=== PATIENT | male | born 1975 | race Caucasian/White ===

== ENCOUNTER → 2017-03-29 09:36 | Day surgery (SDC) | payer OTHER ==
--- NOTE | 2017-03-01 14:30 | HP ---
PREOPERATIVE HISTORY AND PHYSICAL: DATE OF ADMISSION/SURGERY: 03/29/17 DATE OF OFFICE VISIT: 02/16/17 ATTENDING SURGEON: Dr. Adelia Adamson * (DICTATED BY FATUMA DREW) PROCEDURE: Left shoulder arthroscopic decompression and debridement, subpectoral biceps tenodesis. CHIEF COMPLAINT: Left shoulder pain. HISTORY OF PRESENT ILLNESS: Hakan is a 41-year-old male who presents to the clinic for followup of his work-related injury that caused left shoulder impingement of biceps tendinitis. The patient has failed conservative measures to include 2 injections, which help decrease the pain; however, then wore off, he continued to have pain and numbness in his hands. He is therefore agreed to undergo a left shoulder arthroscopic decompression and debridement, subpectoral biceps tenodesis with Dr. Adamson on 03/29/17. PAST MEDICAL HISTORY: No current problems. PAST SURGICAL HISTORY: No prior surgeries. MEDICATIONS: Ibuprofen 600 mg 1 by mouth 3 times a day as needed for pain. ALLERGIES: No known drug allergies. FAMILY HISTORY: Denies pertinent family history. SOCIAL HISTORY: He denies tobacco use. He reports rare alcohol consumption. He denies illegal drug use. REVIEW OF SYSTEMS: A 14-point review of systems was reviewed with the patient and positive for current complaint, otherwise negative. PHYSICAL EXAMINATION GENERAL: A 41-year-old well-developed, well-nourished male, in no acute distress. Alert and oriented x3. Appropriate mood and affect. VITAL SIGNS: Height 67, weight 180, pulse 73, blood pressure 130/106, BMI 28.2. HEENT: Normocephalic, atraumatic. PERRLA. Throat clear. NECK: Supple. PULMONARY: Lungs are clear to auscultation bilaterally. No wheezing, rhonchi, or rales. CARDIO: Regular rate and rhythm. S1, S2. No murmurs, gallops, or rubs. No edema. ABDOMEN: Positive bowel sounds, soft, and nontender. NEURO: Alert and oriented x3. Cranial nerves grossly intact. Sensation is intact to light touch. MUSCULOSKELETAL: Left upper extremity: Skin is intact. No warmth or erythema. Tender over the biceps proximally approximately, forward flexion and abduction is 165. External rotation to 80. Internal rotation to T8. Positive Gen's impingement, Rm, Hooker's, and Speed. +2 radial pulse. Sensation is intact to light touch distally. DIAGNOSTIC STUDIES: MRI of the left shoulder revealed mild supraspinatus and infraspinatus tendinopathy. No evidence of rotator cuff tear with subacromial impingement. IMPRESSION: Left shoulder impingement and biceps tendinitis. PLAN: The patient is scheduled to undergo a left shoulder arthroscopic decompression and debridement, subpectoral biceps tenodesis with Dr. Adamson on 03/29/17. Percocet will be used for postoperative pain management. The patient will follow up in 10 to 14 days after surgery for followup and suture removal. FATUMA DREW [id number]/[facility] #: [id number] MTDD
--- NOTE | 2017-03-14 22:11 | HP ---
PREOPERATIVE HISTORY AND PHYSICAL: DATE OF ADMISSION/SURGERY: 03/29/17. DATE OF OFFICE VISIT: 03/14/17 ATTENDING SURGEON: Adelia Adamson MD * (DICTATED BY FATUMA DREW) PROCEDURE: Left shoulder arthroscopic decompression and debridement, subpectoral biceps tenodesis. CHIEF COMPLAINT: Left shoulder pain. HISTORY OF PRESENT ILLNESS: Hakan is a 42-year-old male who presents to the clinic for his work-related injury that caused left shoulder impingement and biceps tendinitis. He has failed conservative measures to include injections, which helped to decrease the pain; however, then they wore off. He continues to have pain and numbness in the hand; therefore, he is agreed to undergo left shoulder arthroscopic decompression and debridement, subpectoral biceps tenodesis with Dr. Adamson on 03/29/17. PAST MEDICAL HISTORY: No current problems. PAST SURGICAL HISTORY: No prior surgeries. MEDICATIONS: Ibuprofen 600 mg 1 by mouth 3 times a day as needed. ALLERGIES: No known drug allergies. FAMILY HISTORY: Denies pertinent family history. SOCIAL HISTORY: He denies tobacco use. He reports rare alcohol consumption. He denies illegal drug use. REVIEW OF SYSTEMS: A 14-point review of systems was reviewed with the patient and positive for current complaint, otherwise negative. Denies chest pain or shortness of breath. Denies fevers or chills. Denies history of DVT or PE. Denies history of bleeding disorder. PHYSICAL EXAMINATION GENERAL: A 42-year-old well-developed, well-nourished male, in no acute distress, alert and oriented x3. Appropriate mood and affect. VITAL SIGNS: Height 67, weight 180, blood pressure 124/78, respiratory rate 18 , temperature 97.5, BMI 28.2. HEENT: Normocephalic, atraumatic. PERRLA. Throat clear. NECK: Supple. PULMONARY: Lungs are clear to auscultation bilaterally. No wheezing, rhonchi, or rales. CARDIO: Regular rate and rhythm. S1, S2. No murmurs, gallops, or rubs. No edema. ABDOMEN: Positive bowel sounds. Soft and nontender. NEURO: Alert and oriented x3. Cranial nerves grossly intact. Sensation is intact to light touch. MUSCULOSKELETAL: Left upper extremity: Skin is intact. No warmth or erythema. Tenderness over the proximal biceps. Forward flexion and abduction to 165. External rotation to 80. Internal rotation to TA. Positive Gen's impingement, Rm, [place]'s, Speed. +2 radial pulse. Sensation intact to light touch distally. DIAGNOSTIC STUDIES: MRI of the left shoulder reveal mild supraspinatus and infraspinatus tendinopathy. No evidence of rotator cuff tear with subacromial impingement. IMPRESSION: Left shoulder impingement, biceps tendinitis. PLAN/RECOMMENDATIONS: The patient is scheduled to undergo a left shoulder arthroscopic decompression and debridement, subpectoral biceps tenodesis with Dr. Adamson on 03/29/17. He will follow up 10 to 14 days postop for followup and suture removal. Percocet was sent to the patient's pharmacy for postop pain management and Keflex was sent for antibiotic prophylaxis. FATUMA DREW [id number]/[facility] #: [id number] MTDCitlaly
[~2017-03-29 09:36] MED LIST: Buffered Lidocaine 0.9% SYRIN* 5 ML/SYR SYRINGE INTRADERM ONE; Bupivacaine 0.25% SDV* 30 ML ONE; Dexamethasone IV* 4 MG/ML 1 ML (4 MG) ONE; DiMENhydriNATE IV* 50 MG/ML VIAL IV PUSH PRN; Famotidine IV* 10 MG/ML 2 ML (20 mg) IV ONE; Famotidine IV* 10 MG/ML 2 ML (20 mg) ONE; KETAMINE HCL* 50 MG/ML 10 ML VIAL ONE; Lidocaine 2% PF * 5 ML VIAL ONE; Midazolam* 1 MG/ML 10 ML VIAL (10 MG) ONE; Morphine INJ* 2 MG/ML 1 ML CARPUJECT IV PRN; Ondansetron INJ* 2 MG/ML VIAL IV PRN; Ondansetron INJ* 2 MG/ML VIAL ONE; PROCHLORPERAZINE INJ 5 MG/ML 2 ML VIAL IV PRN; Propofol* 10 MG/ML 20 ML BTL IV PUSH ONE; Scopolamine 1.5 mg* PATCH TRANSDERM PRN; Scopolamine PATCH Remove* 1 NOTE MISC PATCH OFF ONE; ceFAZolin 2 GM PREMIX (*) 2 GM/50 ML BAG IVPB ONE; fentaNYL* 50 MCG/ML 2 ML VIAL (100 MCG VIAL) IV PRN; fentaNYL* 50 MCG/ML 2 ML VIAL (100 MCG VIAL) ONE; methylPREDNISolone ACETATE 80* 80 MG/ML 1 ML VIAL ONE; oxyCODONE/Acetamin 5/325 MG* TAB PO PRN
[2017-03-29 15:11] VITALS: BP 136/98
--- NOTE | 2017-04-02 05:10 | OP ---
DATE OF OPERATION: 03/29/17 - [facility] DATE OF : 75 SURGEON: Adelia Adamson MD. COMMERCIAL COORDINATOR: FATUMA Thornton. ANESTHESIOLOGIST: Dr. Bolanos. ANESTHESIA: General, interscalene block. PRE-OP DIAGNOSES: Left shoulder partial thickness rotator cuff tear with bicipital tendonitis. POSTOP DIAGNOSES: Left shoulder partial thickness rotator cuff tear with bicipital tendonitis. OPERATIVE PROCEDURE: 1. Left shoulder arthroscopy with debridement of the subscapularis. 2. Subacromial decompression with acromioplasty. 3. Subpectoral biceps tenodesis. COMPLICATIONS: None. ESTIMATED BLOOD LOSS: Minimal. IMPLANTS USED: One Gerardo and NephYuanfen~Flow™ Q-Fix anchor. INDICATIONS: Hakan Mccartney is a 42-year-old male who sustained a work-related injury to his shoulder. He had significant symptoms. He responded to injections and physical therapy, but they were not long lasting. After extensive discussion of the risks and benefits of surgery versus nonoperative treatment, he has elected to proceed with operative treatment. Risks included but are not limited to bleeding, infection, damage to nerves, vessels, surrounding structures, wound nonhealing, persistent pain, need for further surgery, scarring, stiffness, incomplete relief of symptoms and risk of anesthesia. He elected to proceed. DESCRIPTION OF PROCEDURE: He was greeted in the preoperative area by the attending surgeon. The correct extremity was marked and consent was confirmed. The patient was then underwent interscalene nerve block by anesthesiologist after which the patient was brought back to the operating suite. He was placed in supine position on the operating table. He underwent general anesthesia and LMA intubation after which he was placed in the lateral decubitus position with an axillary roll. All bony prominences were padded. He was secured with pegboard. The left shoulder was draped unsterile with 10 pounds of traction. The left shoulder was prepped in the usual sterile fashion beginning with chlorhexidine soap, scrub, and alcohol wipe and a final prep with ChloraPrep. After appropriate surgical pause indicating site, side, procedure, and administration of antibiotics, the standard postero-lateral portal was made sharply with #11 blade, scope was introduced into the joint, joint was examined. There was hyperemia and synovitis in the joint. The glenohumeral joint had grade 0 to 1 changes with no obvious arthritis. The anterior posterior superior labrum had mild fraying. The superior labrum biceps had evidence of inflammation and tendinitis. There was damage to the randi. The subscap had mild amount of partial-thickness tearing but less than 5% of meniscus torn. The inner surface of the subscap had a mild amount of fraying as well as, this was then marked with a PDS suture for identification. On the bursal side there was tearing that made repair necessary. The biceps was taken through range of motion and tenotomized due to the inflammation synovitis. Once the debridement was completed, including debridement of the subscapularis, attention was directed to subacromial space. The scope was introduced in the subacromial space there is abundant bursa that was present. With the lateral portal in an outside-in fashion, the abundant hyperemic bursa that was present was removed using a shaver. The electrocautery device was then used for hemostasis and to skeletonize the undersurface of the acromion. The cuff was carefully curved with a blunt device and there was no full thickness tear, no bursal-sided tearing. Decision was made not to do a repair. Attention was directed to the subacromial decompression with the anterior lateral spur skeletonized using electrocautery device. This revealed a moderate size spur. This then underwent acromioplasty using a 4-0 oval candido. All excess debris was removed from the joint. At this point an 18-gauge needle was placed in the subacromial space for lateral Depo- Medrol injection. The scope was removed from the joint and the attention was directed to the biceps tenodesis. The anterior aspect of the shoulder was prepped again using ChloraPrep. A 15 blade was used to make an incision in line with the biceps encompassing the inferior two thirds of the pec. The soft tissues were carefully dissected using Metzenbaum scissors. Electrocautery device was used to maintain hemostasis. Once the pec fascia was identified, remainder of the dissection was done bluntly. The pec was elevated proximally. The bicep groove was identified. The biceps through the wound and found to have abundant synovitis inflammation. The groove was then prepared in the usual fashion with electrocautery device. The red ball rasp as well as the osteotome did allow for a good bony bleeding bed. The Q-Fix was then drilled unicortically and placed with excellent purchase. The sutures were passed then through the tendon approximately 1 cm proximal to the musculotendinous junction in a Gennaro- [place] type configuration. The excess stump was excised and then the sutures were shelved back into the wound. The wounds were copiously irrigated with sterile saline. The portals were closed with 3-0 nylon, the anterior wound was closed in layers with 2-0 Vicryl and 3-0 Monocryl. Sterile dressings were applied. The anterior wound was injected with 20 cc of 0.25% Marcaine. Sterile dressings were applied as well as Cryo/Cuff and UltraSling. He was awoken from anesthesia and transferred to PACU in stable condition. POSTOPERATIVE PLAN: He will be nonweightbearing. He will be in a sling for about 4 weeks. He will be discharged on pain medication. DVT prophylaxis was considered but deferred due to no previous personal or family history. I will see the patient back in 10 to 14 days. [id number]/[facility] #: [id number] FELI
== END | disposition home or self-care (01) ==
LOC: OR 09:36
PROVIDERS: ATTEND Orthopaedic Surgery
DX: S46.012A Strain of muscle(s) and tendon(s) of the rotator cuff of left shoulder, initial encounter (principal); M75.22 Bicipital tendinitis, left shoulder; X58.XXXA Exposure to other specified factors, initial encounter; Y92.9 Unspecified place or not applicable; G89.18 Other acute postprocedural pain; M25.812 Other specified joint disorders, left shoulder
CPT/HCPCS: C1776; J0690; J1040; J1100; J2250; J2405; J2704; J3010